=== PATIENT | female | born 1955 | race Two or more races ===

== ENCOUNTER 2017-07-24 16:50 | Inpatient (IN) | payer MEDICARE, MEDICAID ==
[~2017-07-24] VITALS: Ht 170.2 cm; Wt 68.0 kg
--- NOTE | 2017-07-24 16:52 | NUR ---
PT BIBRA TO ER BED 14. HERE FOR DEPRESSION. ADMITS TO USING METH AND ALCOHOL. GOWND AND PLACED ON MOITOR. DENIES SI/HI. AWAITING MD JACKSON.
--- NOTE | 2017-07-24 17:07 | NUR ---
DR FLOR AT BEDSIDE FOR EVAL.
--- NOTE | 2017-07-24 17:23 | NUR ---
IV LINE STARTED BLOOD DRAWN AND SENT TO LAB.
[2017-07-24] MEDS ORDERED: ONDANSETRON HCL/PF 4 MG/2 ML VIAL IVP ONE (17:30)
[2017-07-24 17:31] LABS: BASOPHILS % (AUTO) 0.4 % (0.0-2.0); EOSINOPHILS # (AUTO) 0.3 /CMM (0.0-0.7); EOSINOPHILS % (AUTO) 6.9 % (0.0-6.0); HEMATOCRIT 33 % (33-45); HEMOGLOBIN 10.6 g/dL (11.5-14.8); LYMPHOCYTES # (AUTO) 1.6 /CMM (0.8-4.8); LYMPHOCYTES % (AUTO) 36.1 % (20.0-44.0); MEAN CORPUSCULAR HEMOGLOBIN 30 PG (26.0-33.0); MEAN CORPUSCULAR HGB CONC 33 g/dl (31.0-36.0); MEAN CORPUSCULAR VOLUME 91 fL (82-100); MONOCYTES # (AUTO) 0.3 /CMM (0.1-1.30); NEUTROPHILS # (AUTO) 2.2 /CMM (1.8-8.9); NEUTROPHILS % (AUTO) 49.6 % (43.0-81.0); PLATELET COUNT (AUTO) 246 /CMM (150-450); RDW COEFFICIENT OF VARIATION 15.5 (11.5-15.0); RED BLOOD CELL COUNT(AUTO) 3.57 MIL/uL (4.0-5.2); WHITE BLOOD COUNT (AUTO) 4.4 K/uL (4.3-11.0)
[2017-07-24 17:40] LABS: CALCIUM, SERUM 9.3 mg/dL (8.5-10.1); CARBON DIOXIDE 30 mmol/L (21-32); CHLORIDE 104 mmol/L (98-107); CREATININE 0.7 mg/dL (0.6-1.3); GLUCOSE 108 mg/dL (74-106); POTASSIUM 3.7 mmol/L (3.5-5.1); SODIUM SERUM 140 mmol/L (136-145); UREA NITROGEN, BLOOD 7 mg/dL (7-18)
[2017-07-24 17:44] LABS: ALANINE AMINOTRANSFERASE 20 U/L (12-78); ALBUMIN 3.7 g/dL (3.4-5.0); ALCOHOL, BLOOD < 3 mg/dL (0-0); ALKALINE PHOSPHATASE 73 U/L (46-116); ASPARTATE AMINOTRANSFERASE 19 U/L (15-37); BILIRUBIN,TOTAL 0.2 mg/dL (0.2-1.0); TOTAL PROTEIN, SERUM 6.8 g/dL (6.4-8.2)
[2017-07-24 17:49] LABS: APPEARANCE,URINE Clear (CLEAR); BILIRUBIN,URINE Negative (NEGATIVE); BLOOD, URINE Negative Ery/uL (NEGATIVE); COLOR,URINE Yellow (YELLOW); KETONES,URINE Negative (NEGATIVE); LEUKOCYTE ESTERASE ,URINE Trace (NEGATIVE); NITRITE, URINE Negative (NEGATIVE); PH,URINE 6.5 (5.0-8.0); PROTEIN,URINE Negative (NEGATIVE); UGLUCOSE Negative (NEGATIVE); UROBILINOGEN,URINE 0.2 EU/dL (0.2)
[2017-07-24 17:50] LABS: TROPONIN I < 0.017 ng/mL (0.00-0.056)
--- NOTE | 2017-07-24 17:50 | NUR ---
RADIOLOGY AT BEDSIDE FOR CHEST XRAY.
[2017-07-24 17:55] LABS: SALICYLATE 0.9 mg/dL (2.8-20.0)
[2017-07-24 18:00] LABS: INR 0.9 (0.87-1.13); PROTHROMBIN TIME 9.4 SECS (9.5-12.7)
[2017-07-24] MEDS ORDERED: FAMOTIDINE/PF INJ 20 MG/2 ML VIAL IV ONE ×2 (18:07→18:30)
[2017-07-24] MEDS ORDERED: ONDANSETRON HCL/PF 4 MG/2 ML VIAL ONE (18:07)
[2017-07-24 18:18] LABS: BACTERIA,URINE Few /HPF (None Seen); RBC,URINE 0-2 /HPF (0-2); SQUAMOUS EPITHELIAL CELL,UR Many /HPF (None Seen)
[2017-07-24 18:19] LABS: MUCUS,URINE Few /LPF (None Seen); URINE AMORPHOUS URATE Few /HPF (None Seen)
--- NOTE | 2017-07-24 18:34 | NUR ---
CALLED JEFF LINE ASSEMBLER.
[2017-07-24] MEDS ORDERED: LORAZEPAM 1 MG TABLET PO ONE (19:30)
[2017-07-24 19:50] LABS: ACETAMINOPHEN < 20 ug/ml (10-30)
[2017-07-24] MEDS ORDERED: LORAZEPAM 1 MG TABLET ONE (19:54)
--- NOTE | 2017-07-24 20:08 | NUR ---
IV removed. Catheter intact and site benign. Pressure and 4x4 applied to site. No bleeding noted.
--- NOTE | 2017-07-24 20:15 | NUR ---
REPORT GIVEN TO CINTHIA. PT AWAITING MD JACKSON.
[2017-07-24 21:00] VITALS: BP 144/90
[2017-07-24] MEDS ORDERED: LORAZEPAM 0.5 MG TABLET PO PRN (21:00)
--- NOTE | 2017-07-24 21:00 | NUR ---
GPS STUDIO RECEPTIONIST NOTES: ADMITTED A 61YO FEMALE FROM A [facility] SHE CLAIMS ON VOLUNTARY HOLD. PER REPORT PATIENT IS DEPRESSED AND WANTS TO BE ADMITTED HERE. VOLUNTARY HOLD SIGNED AND FILED IN THE CHART. SHE WILL BE UNBER THE CARE OF DR. MCINTYRE AND DR. GONZALEZ. PER PATIENT SHE CLAIMS TO HAVE THE FOLLOWING MEDICAL ISSUES- CHF, GERD, HYPERTENSION, DEPRESSION AND ANXIETY. PATIENT WAS BROUGHT IN THE UNIT AND USHERED TO ROOM, UPON FACE TO FACE ASSESSMENT, PATIENT PRESENTS ALERT AND ORIENTED X2-3, HYPERVERBAL, REPEATS TOPICS FROM TIME TO TIME, ARGUMENTATIVE, ASKING FOR HER MEDICATIONS RIGHT AWAY. PHYSICALLY SHE PRESENTS HERSELF TO THE UNIT WITH BLUE COLORED HAIR, AND WITH A COUPLE OF FASHION NECKLACES AROUND HER NECK WELL FASHION RINGS WITH STONES ON HER FINGERS. BELONGINGS AND CONTRABAND CHECKED. VALUABLES DEPOSITED TO SAFE. REALITY ORIENTATION DONE. PATIENT MADE AWARE OF UNIT RULES AND POLICIES. INITIALLY PATIENT REFUSED TO BE IN THIS LOCKED UNIT, SHE CLAIMS THAT SHE CAME HERE BECAUSE SHE IS WITHDRAWING FROM ALCOHOL AND METH. PATIENT THEN EXPLAINED BY CAR DROPPER THAT TWO DOCTORS WILL COME AND CHECK HER INT HE MORNING. SKIN AND BODY ASSESSMENT DONE WITH RAIZA SAUNDERS. PICTURES TAKEN AND PLACED IN THE CHART. PATIENT HAS NO ACTIVE OPEN WOUND THIS TIME.PATIENT ORIENTED TO UNIT, STAFF, CARE PLAN, DOCTORS AND NURSES. SMOKING CESSATION EDUCATION INITIATED. PATIENT REFUSED. PATIENT IS VERY FOCUSED ON HIS MEDICATIONS. EXPLAINED THEN TO PATIENT THAT TWO DOCTORS(PSYCHE AND MEDICAL) WILL EVALUATE HER IN THE MORNING. Q15 MIN CHECKS INITIATED. MEDICATION [id number] DONE. WILL MONITOR PATIENT FOR MOOD,,SAFETY AND BEHAVIOT. Addendum: 07/25/17 at 0548 by JE BRAXTON AT 0025- DR. GONZALEZ PAGED FOR MED RECON- HE CALLED BACK AT 0027. HE WAS THEN INFORMED OF THE PATIENT'S ADMISSION TO THE UNIT, AND REMINDED TO DO MED RECON. WILL FOLLOW UP FOR PATIENT.
[2017-07-24] MEDS ORDERED: TEMAZEPAM 7.5 MG CAPSULE ONE (22:55)
[2017-07-24] MEDS: TEMAZEPAM 7.5 MG CAPSULE PO PRN (23:00)
--- NOTE | 2017-07-24 23:00 | NUR ---
GPS RN: PATIENT REQUESTED FOR SLEEPING MEDICATION- RESTORIL 7.5 MG PULLED OUT BY HERB GROWERVONDA OWEN FROM [employer] AND GIVEN TO PATIENT PRN ORDER. WILL MONITOR PATIENT'S SLEEPING PATTERN. 230- PATIENT REQUESTED FOR PAIN MEDICATION- OFFERED TYLENOL 650MG. HERB GROWERVONDA OWEN PULLED OUT MEDICATION AND GIVEN TO PATIENT PRN ORDER. WILL CONTINUE TO MONITOR PATIENT'S PAIN STATUS. 234- PATIENT REQUESTED FOR MEDICATION FOR THE STOMACH SHE COMPLAINS THAT SHE HAS UPSET STOMACH OF THE MOMENT. MAALOX MEDICATION PULLED OUT BY HERB GROWERBRAYDEN FERRARI FROM [employer] AND GIVEN TO PATIENT PRN ORDER.
[2017-07-24] MEDS: ACETAMINOPHEN 325 MG TABLET PO PRN (23:08)
[2017-07-24] MEDS: MAG HYDROX/AL HYDROX/SIMETH 30 ML UDC PO PRN (23:41)
[2017-07-25] MEDS ORDERED: METO25TA6 PO (00:18)
[2017-07-25] MEDS ORDERED: HYDR-552 PO (00:18)
[2017-07-25] MEDS ORDERED: BACL10TA PO (00:18)
[2017-07-25] MEDS ORDERED: ALBU0.633 IH (00:18)
[2017-07-25] MEDS ORDERED: LITH300T3 PO (00:18)
[2017-07-25] MEDS ORDERED: FURO-144 PO (00:18)
[2017-07-25] MEDS ORDERED: QUET100T PO (00:18)
[2017-07-25] MEDS ORDERED: CARB25TA3 PO (00:18)
[2017-07-25] MEDS ORDERED: HYDR2TAB35 PO (00:18)
[2017-07-25] MEDS ORDERED: CLON2TAB4 PO (00:18)
[2017-07-25] MEDS ORDERED: SERT100T PO (00:18)
[2017-07-25] MEDS ORDERED: BUDE10.22 INH (00:18)
[2017-07-25] MEDS ORDERED: RISP0.253 PO (00:18)
[2017-07-25] MEDS ORDERED: PANT40TA2 PO (00:21)
--- NOTE | 2017-07-25 06:19 | NUR ---
GPS RN: PATIENT REQUESTED FOR ATIVAN MEDICATION- PER PATIENT SHE IS GETTING ANXIOUS ALREADY AND THAT SHE WANTED TO LEAVE THE UNIT, ATIVAN 0.5 MG PULLED OUT FROM [facility]MN[employer] PRN ORDER. GIVEN TO PATIENT A PRN ORDER. WILL CONTINUE TO MONITOR. WILL INFORM DAY SHIFT NURSE.
[2017-07-25 08:26] VITALS: BP 133/85
[2017-07-25] MEDS: ACETAMINOPHEN 325 MG TABLET PO PRN (08:32)
--- NOTE | 2017-07-25 08:34 | NUR ---
GPS/RN-NOTES PATIENT REQUESTING FOR TYLENOL FOR HER LEGS 4/10 PAIN. TYLENOL 650MG P.O GIVEN PRN OR JON. WILL CONT. MONITORING FOR SAFETY.
[2017-07-25] MEDS ORDERED: ALBUTEROL SULFATE 0.63 MG IH SCH (12:00)
[2017-07-25] MEDS: HYDROCODONE/APAP 5/325MG 1 EACH TABLET PO SCH ×2 (12:00→18:08)
[2017-07-25] MEDS: HYDROMORPHONE HCL 2 MG TABLET PO SCH ×3 (12:58→20:24)
[2017-07-25] MEDS: METOPROLOL TARTRATE 25 MG TABLET PO SCH ×2 (13:00→16:36)
[2017-07-25] MEDS ORDERED: CARBIDOPA 25 MG TABLET PO SCH ×2 (13:00)
[2017-07-25] MEDS: BACLOFEN (10 MG) 10 MG TABLET PO SCH ×2 (13:00→16:35)
--- NOTE | 2017-07-25 13:03 | NUR ---
GPS/RN-NOTES PATIENT REFUSED NORCO 5MG/325MG SCHEDULED ON 1200 NOON AND DILAUDID 2MG P.O. OFFERED X3 BUT PATIENT PREFERS TO LEAVE THE HOSPITAL.
[2017-07-25] MEDS: LORAZEPAM 1 MG TABLET PO PRN ×2 (14:03→20:57)
--- NOTE | 2017-07-25 14:06 | NUR ---
GPS/RN-NOTES PATIENT VERY ANXIOUS, INTRUSIVE INSISTING OF GOING HOME. REDIRECTED AND OFFERED ATIVAN AND AGREES. ATIVAN 1MG P.O GIVEN PRN ORDER. WILL CONT. MONITORING FOR SAFETY AND BEHAVIOR.
--- NOTE | 2017-07-25 14:44 | NUR ---
GPS/RN NOTES PATIENT IN HER ROOM SITTING IN HER BED,CALM AND COOPERATIVE AT THIS TIME NO ACUTE DISTRESS NOTED.ENDORSED TO CHARGE NURSE FOR CONTINUITY OF CARE
--- NOTE | 2017-07-25 15:30 | NUR ---
GPS/RN-NOTES PATIENT CLAIMED SHE DRINK 1/2 TO [address] CRESPO MADE AWARE AND STATED " IF SHE'S ON ATIVAN THAT IS ENOUGH,I DON'T SEE ANY ALCOHOL WITHDRAWAL ON THE PATIENT". CHARGE NURSE AWARE.
[2017-07-25] MEDS: LITHIUM CARBONATE 150 MG CAPSULE PO SCH ×2 (15:52→20:25)
[2017-07-25] MEDS: SERTRALINE HCL 50 MG TABLET PO SCH (15:52)
[2017-07-25 16:25] VITALS: BP 140/95
[2017-07-25] MEDS: PANTOPRAZOLE 40 MG TABLET.DR PO SCH (16:35)
[2017-07-25] MEDS: CARBIDOPA/LEVODOPA 25/100 MG 1 UDTAB PO SCH (16:35)
[2017-07-25] MEDS ORDERED: HOME MED MISCELLANEOUS INH SCH (17:00)
--- NOTE | 2017-07-25 18:01 | NUR ---
RN NOTE: NOTIFIED PATIENT HAS HX OF SZ AND HX OF ALCOHOLIC AND DRINKING 1/2 PINT TO 1 PINTOF ALCHOHOL EVERY DAY AND PATIENT REQUESTING LIBRIUM AND STATED "PATIENT HAS ATIVAN ,I WILL NOT ORDER LIBRIUM".
[2017-07-25] MEDS: MAG HYDROX/AL HYDROX/SIMETH 30 ML UDC PO PRN (18:58)
--- NOTE | 2017-07-25 18:59 | NUR ---
GPS/RN-NOTES PATIENT C/O INDIGESTION AND REQUESTING FOR MAALOX. MAALOX 30 ML GIVEN PRN ORDER. WILL ENDORSED TO INCOMING NURSE FOR CONTINUITY OF CARE.
[2017-07-25] MEDS: ONDANSETRON 4 MG TAB.RAPDIS PO PRN (19:29)
--- NOTE | 2017-07-25 19:29 | NUR ---
GPS RN NOTES: PATIENT C/O NAUSEOUS, REQUESTED FOR ZOFRAN. ZOFRAN 4MG PO GIVEN PRN ORDER. WILL CONTINUE TO MONITOR.
[2017-07-25 19:42] VITALS: BP 133/81
[2017-07-25] MEDS: ALBUTEROL HALF STRENGTH 1.25 MG/3 ML VIAL.NEB NEB SCH (20:01)
--- NOTE | 2017-07-25 20:57 | NUR ---
GPS RN NOTES: PATENT ALERT AND ORIENTED X3. PATIENT IS VERY ANXIOUS. PT REQUESTED FOR ATIVAN. VITAL SIGNS ARE STABLE. ATIVAN 1MG PO GIVEN PRN ORDER. WILL CONTINUE TO MONITOR [id number] FOR SAFETY AND BEHAVIOR.
[2017-07-25] MEDS: TEMAZEPAM 7.5 MG CAPSULE PO PRN (21:51)
[2017-07-25] MEDS: QUETIAPINE FUMARATE 100 MG TABLET PO SCH (22:12)
--- NOTE | 2017-07-26 | NUR ---
GPS RN NOTES: PATIENT HAS SCHEDULED MEDICATION 12AM, NORCO 5/325MG PO, NOT GIVEN/NOT ADMIN DUE TO PATIENT ASLEEP. NO MANIFESTATION OF PAIN OR DISCOMFORT NOTED AT THIS TIME. WILL CONTINUE TO MONITOR PATIENT PAIN STATUS. CHARGE NURSE MADE AWARE.
[2017-07-26] MEDS: HYDROMORPHONE HCL 2 MG TABLET PO SCH ×7 (01:00→22:17)
[2017-07-26] MEDS: ONDANSETRON 4 MG TAB.RAPDIS PO PRN ×2 (01:29→20:53)
--- NOTE | 2017-07-26 01:29 | NUR ---
GPS RN NOTES: PATIENT C/O OF NAUSEA/VOMITING. NOTED WITH EMESIS X1 WITH FOOD CONTENT. VITALS SIGNS ARE STABLE. WILL CONTINUE TO MONITOR.
[2017-07-26] MEDS: ALBUTEROL HALF STRENGTH 1.25 MG/3 ML VIAL.NEB NEB SCH ×4 (01:43→20:35)
--- NOTE | 2017-07-26 05:00 | NUR ---
GPS RN NOTES: PATIENT ASLEEP AT THIS TIME. SCHEDULED DILAUDID 2MG, NOT GIVEN/NON-ADMIN. NO MANIFESTATION OF PAIN/DISCOMFORT NOTED. CHARGE NURSE MADE AWARE. WILL CONTINUE TO MONITOR AND ASSESS PATIENT PAIN STATUS.
[2017-07-26] MEDS: HYDROCODONE/APAP 5/325MG 1 EACH TABLET PO SCH ×4 (06:00→18:00)
--- NOTE | 2017-07-26 06:29 | NUR ---
GPS RN NOTES: PATIENT HAS SCHEDULED MEDICATION 0600, NORCO 5/325MG PO, NOT GIVEN/NOT ADMIN DUE TO PATIENT ASLEEP. NO MANIFESTATION OF PAIN OR DISCOMFORT NOTED AT THIS TIME. WILL CONTINUE TO MONITOR AND ASSESS PATIENT PAIN STATUS. CHARGE NURSE MADE AWARE.
[2017-07-26] MEDS: PANTOPRAZOLE 40 MG TABLET.DR PO SCH ×2 (07:30→16:58)
[2017-07-26] MEDS ORDERED: FENTANYL PF 100MCG/2ML AMPUL ONE (07:32)
[2017-07-26 08:40] VITALS: BP 130/69
[2017-07-26] MEDS: METOPROLOL TARTRATE 25 MG TABLET PO SCH ×3 (09:00→17:02)
[2017-07-26] MEDS: SERTRALINE HCL 50 MG TABLET PO SCH (09:00)
[2017-07-26] MEDS: LITHIUM CARBONATE 150 MG CAPSULE PO SCH ×2 (09:00→22:17)
[2017-07-26] MEDS: CARBIDOPA/LEVODOPA 25/100 MG 1 UDTAB PO SCH ×3 (09:00→16:59)
[2017-07-26] MEDS: BACLOFEN (10 MG) 10 MG TABLET PO SCH ×3 (09:00→16:58)
[2017-07-26] MEDS: FLUTICASONE/VILANTEROL 1 EACH BLST.W.DEV IH SCH (09:00)
[2017-07-26] MEDS: FUROSEMIDE 40 MG TABLET PO SCH (09:00)
[2017-07-26] MEDS: LORAZEPAM 1 MG TABLET PO PRN ×2 (11:37→17:17)
--- NOTE | 2017-07-26 11:50 | NUR ---
RN Note Ativan 1mg given for anxiety. Will continue to monitor.
[2017-07-26 15:55] VITALS: BP 105/55
--- NOTE | 2017-07-26 18:01 | NUR ---
RN Note: Ativan 1mg given for anxiety. Will monitor patient for safety.
[2017-07-26 20:45] VITALS: BP 108/60
--- NOTE | 2017-07-26 20:53 | NUR ---
GPS RN NOTES: PATIENT C/O NAUSEOUS, REQUESTED FOR ZOFRAN. ZOFRAN 4MG PO GIVEN PRN ORDER. WILL CONTINUE TO MONITOR.
[2017-07-26] MEDS: TEMAZEPAM 7.5 MG CAPSULE PO PRN (21:34)
[2017-07-26] MEDS: QUETIAPINE FUMARATE 100 MG TABLET PO SCH (22:18)
--- NOTE | 2017-07-27 00:01 | NUR ---
GPS RN NOTES: PATIENT HAS SCHEDULED MEDICATION 12AM, NORCO 5/325MG PO, NOT GIVEN/NOT ADMIN DUE TO PATIENT ASLEEP. NO MANIFESTATION OF PAIN OR DISCOMFORT NOTED AT THIS TIME. WILL CONTINUE TO MONITOR AND ASSESS PATIENT PAIN STATUS. CHARGE NURSE MADE AWARE.
[2017-07-27] MEDS: HYDROMORPHONE HCL 2 MG TABLET PO SCH ×6 (01:00→21:28)
--- NOTE | 2017-07-27 01:00 | NUR ---
GPS RN NOTES: PATIENT ASLEEP AT THIS TIME. DILAUDID 2MG SCHEDULED ON 0100, NOT GIVEN/NON-ADMIN. NO MANIFESTATION OF PAIN/DISCOMFORT NOTED. CHARGE NURSE MADE AWARE. WILL CONTINUE TO MONITOR AND ASSESS PATIENT PAIN STATUS.
[2017-07-27] MEDS: ALBUTEROL HALF STRENGTH 1.25 MG/3 ML VIAL.NEB NEB SCH ×4 (01:18→19:30)
--- NOTE | 2017-07-27 05:00 | NUR ---
GPS RN NOTES: PATIENT ASLEEP AT THIS TIME. SCHEDULED DILAUDID 2MG PO, NOT GIVEN/NON-ADMIN. NO MANIFESTATION OF PAIN/DISCOMFORT NOTED. CHARGE NURSE MADE AWARE. WILL CONTINUE TO MONITOR AND ASSESS PATIENT PAIN STATUS.
[2017-07-27] MEDS: HYDROCODONE/APAP 5/325MG 1 EACH TABLET PO SCH ×2 (06:14)
[2017-07-27] MEDS: LORAZEPAM 1 MG TABLET PO PRN ×3 (06:37→21:26)
--- NOTE | 2017-07-27 06:38 | NUR ---
GPS RN NOTES: PATENT ALERT AND ORIENTED X3. PATIENT IS VERY ANXIOUS. PT REQUESTED FOR ATIVAN. VITAL SIGNS ARE STABLE. ATIVAN 1MG PO GIVEN PRN ORDER. WILL CONTINUE TO MONITOR [id number] FOR SAFETY AND BEHAVIOR.
[2017-07-27 08:00] VITALS: BP 100/59
[2017-07-27] MEDS: LITHIUM CARBONATE 150 MG CAPSULE PO SCH ×2 (08:57→21:28)
[2017-07-27] MEDS: PANTOPRAZOLE 40 MG TABLET.DR PO SCH ×2 (08:57→17:18)
[2017-07-27] MEDS: BACLOFEN (10 MG) 10 MG TABLET PO SCH ×3 (08:57→17:19)
[2017-07-27] MEDS: METOPROLOL TARTRATE 25 MG TABLET PO SCH ×3 (08:58→17:19)
[2017-07-27] MEDS: CARBIDOPA/LEVODOPA 25/100 MG 1 UDTAB PO SCH ×3 (08:58→17:18)
[2017-07-27] MEDS: SERTRALINE HCL 50 MG TABLET PO SCH (08:58)
[2017-07-27] MEDS: FUROSEMIDE 40 MG TABLET PO SCH (08:58)
--- NOTE | 2017-07-27 10:00 | NUR ---
Initial Discharge Note Patient currently resides at an independent living facility, located at [address] [place] [id number] / [phone]. Patient states she is unsure if she would like to go back. Patient states she would like to either go to SNF or inpatient drug rehab. Patient finally decided on detox program. SW to follow up and arrange safe and proper discharge. SW to provide substance abuse referrals and smoking cessation referrals to patient upon discharge.
--- NOTE | 2017-07-27 10:38 | NUR ---
Discharge Planning: Patient stated that she changed her mind about the inpatient rehab program wants to return to her independent living [address] [address] / [phone]. SW asked patient if she was sure that was the right decision for her and patient stated that it was. SW to contact Cassy [phone] from [facility] and confirm patient's return.
[2017-07-27] MEDS: FLUTICASONE/VILANTEROL 1 EACH BLST.W.DEV IH SCH (10:51)
[2017-07-27 16:08] VITALS: BP 110/60
--- NOTE | 2017-07-27 16:16 | NUR ---
GPS/RN PATIENT REPORTS CHEST PAIN, VITAL SIGNS STABLE, BP 114/66 HR 68, 02 97%, NO MAJOR DISTRESS NOTED, DR CRESPO AWARE, ORDERED STAT EKG, ORDERS INPUTTED IN SYSTEM.AWAITING EKG.
--- NOTE | 2017-07-27 17:20 | NUR ---
GPS/RN DR CRESPO AWARE OF EKG RESULTS, NO NEW ORDERS AT THIS TIME.
[2017-07-27 20:00] VITALS: BP 129/71
--- NOTE | 2017-07-27 20:01 | NUR ---
RT PT STATES SHE HAS NO REASON TO BE HERE AND DOES NOT WANT HER TX. NO SOB OR RESP DISTRESS NOTED AT THIS TIME.
--- NOTE | 2017-07-27 21:26 | NUR ---
GPS/RN NOTE: PATIENT IS ANXIOUS, LORAZEPAM 5 MG TAB PO GIVEN.
[2017-07-27] MEDS: TEMAZEPAM 7.5 MG CAPSULE PO PRN (21:55)
[2017-07-27] MEDS: QUETIAPINE FUMARATE 100 MG TABLET PO SCH (21:55)
--- NOTE | 2017-07-27 21:57 | NUR ---
GPS/RN NOTE: PATIENT C/O INSOMNIA, TEMAZEAPM 7.5 MG CAP 1 PO GIVEN.
[2017-07-28] MEDS: HYDROMORPHONE HCL 2 MG TABLET PO SCH ×6 (01:00→21:00)
--- NOTE | 2017-07-28 01:21 | NUR ---
GPS/RN NOTE: DILAUDID TAB PO DUE AT 0100 NOT ADMINISTERED, PATIENT ASLEEP AT THIS TIME.
[2017-07-28] MEDS: ALBUTEROL HALF STRENGTH 1.25 MG/3 ML VIAL.NEB NEB SCH ×4 (01:30→20:34)
[2017-07-28] MEDS: LORAZEPAM 1 MG TABLET PO PRN ×3 (04:55→20:05)
[2017-07-28 08:00] VITALS: BP 99/59
[2017-07-28] MEDS: PANTOPRAZOLE 40 MG TABLET.DR PO SCH ×2 (08:48→16:19)
[2017-07-28] MEDS: FUROSEMIDE 40 MG TABLET PO SCH (09:00)
[2017-07-28] MEDS: METOPROLOL TARTRATE 25 MG TABLET PO SCH ×3 (09:00→16:20)
[2017-07-28] MEDS: CARBIDOPA/LEVODOPA 25/100 MG 1 UDTAB PO SCH ×3 (10:12→16:21)
[2017-07-28] MEDS: LITHIUM CARBONATE 150 MG CAPSULE PO SCH ×2 (10:12→21:11)
[2017-07-28] MEDS: BACLOFEN (10 MG) 10 MG TABLET PO SCH ×3 (10:15→16:21)
[2017-07-28] MEDS: SERTRALINE HCL 50 MG TABLET PO SCH (10:15)
[2017-07-28] MEDS: FLUTICASONE/VILANTEROL 1 EACH BLST.W.DEV IH SCH (10:19)
[2017-07-28] MEDS ORDERED: HYDROCODONE/APAP 5/325MG 1 EACH TABLET PO PRN (13:00)
--- NOTE | 2017-07-28 13:28 | NUR ---
RN NOTE: Ativan 1mg given for anxiety.
[2017-07-28 16:00] VITALS: BP 111/67
--- NOTE | 2017-07-28 16:41 | NUR ---
Discharge Planning: SW spoke with patient several times throughout the day. Patient insisted on going home. SW explained that patient is still on hold and that the psychiatrist has to put in a discharge order before anything can be done. Patient stated that the contact number for her independent living was on her phone. SW asked the SALES ANALYTICS MANAGER to bring up the phone to the unit from the safe on the first floor. Patient's phone was out of charge. SW attempted to locate a recharger. Several chargers were tried and not one fit the patient's phone. SW attempted to find the contact information for the independent living via and internet search and was unsuccessful. Please note that patient refused alternative placement, stating that she will go to a prison if she is unable to return home. Patient is insistent that today would be the last day for her to return home "or else [she] loses [her] place." SW is unable to verify that information.
--- NOTE | 2017-07-28 16:44 | NUR ---
Upon patient's request, NACRISA connected patient with NARCISA's software engineering supervisor, Janis Samaniego [phone]. NARCISA also provided patient with the Patient's Rights phone number, .
[2017-07-28 20:00] VITALS: BP 103/59
[2017-07-28] MEDS: TEMAZEPAM 7.5 MG CAPSULE PO PRN (21:12)
[2017-07-28] MEDS: QUETIAPINE FUMARATE 100 MG TABLET PO SCH (22:09)
[2017-07-29] MEDS: ALBUTEROL HALF STRENGTH 1.25 MG/3 ML VIAL.NEB NEB SCH ×4 (00:51→19:30)
[2017-07-29] MEDS: HYDROMORPHONE HCL 2 MG TABLET PO SCH ×6 (01:00→20:09)
[2017-07-29] MEDS: LORAZEPAM 1 MG TABLET PO PRN ×3 (06:35→19:49)
[2017-07-29 08:00] VITALS: BP 134/58
[2017-07-29] MEDS: PANTOPRAZOLE 40 MG TABLET.DR PO SCH ×2 (08:01→16:00)
[2017-07-29] MEDS: BACLOFEN (10 MG) 10 MG TABLET PO SCH ×3 (08:01→16:00)
[2017-07-29] MEDS: FUROSEMIDE 40 MG TABLET PO SCH (08:01)
[2017-07-29] MEDS: LITHIUM CARBONATE 150 MG CAPSULE PO SCH ×2 (08:01→20:08)
[2017-07-29] MEDS: SERTRALINE HCL 50 MG TABLET PO SCH (08:02)
[2017-07-29] MEDS: CARBIDOPA/LEVODOPA 25/100 MG 1 UDTAB PO SCH ×3 (08:02→16:00)
[2017-07-29] MEDS: METOPROLOL TARTRATE 25 MG TABLET PO SCH ×3 (08:43→16:01)
[2017-07-29] MEDS: FLUTICASONE/VILANTEROL 1 EACH BLST.W.DEV IH SCH (08:44)
--- NOTE | 2017-07-29 14:22 | NUR ---
AM RN NOTE Patient notified RN that she was smoking 1 pack of cigarettes prior admission and pt requesting for nicotine patch. New order obtained from Dr. Thomas for nicotine patch noted and carried out.
[2017-07-29 15:41] VITALS: BP 111/56
[2017-07-29] MEDS: NICOTINE PATCH (14MG) 14 MG PATCH.TD24 TD SCH (15:58)
[2017-07-29 20:00] VITALS: BP 110/64
[2017-07-29] MEDS: TEMAZEPAM 7.5 MG CAPSULE PO PRN (23:38)
[2017-07-29] MEDS: QUETIAPINE FUMARATE 100 MG TABLET PO SCH (23:38)
[2017-07-29] MEDS: MAG HYDROX/AL HYDROX/SIMETH 30 ML UDC PO PRN (23:43)
[2017-07-30] MEDS: HYDROMORPHONE HCL 2 MG TABLET PO SCH ×6 (01:00→21:14)
[2017-07-30] MEDS: ALBUTEROL HALF STRENGTH 1.25 MG/3 ML VIAL.NEB NEB SCH ×4 (01:25→20:06)
[2017-07-30] MEDS: LORAZEPAM 1 MG TABLET PO PRN ×2 (05:56→12:15)
[2017-07-30 08:24] VITALS: BP 119/68
[2017-07-30] MEDS: PANTOPRAZOLE 40 MG TABLET.DR PO SCH ×2 (08:47→16:36)
[2017-07-30] MEDS: BACLOFEN (10 MG) 10 MG TABLET PO SCH ×3 (09:44→17:00)
[2017-07-30] MEDS: NICOTINE PATCH (14MG) 14 MG PATCH.TD24 TD SCH (09:44)
[2017-07-30] MEDS: METOPROLOL TARTRATE 25 MG TABLET PO SCH ×3 (09:44→17:00)
[2017-07-30] MEDS: CARBIDOPA/LEVODOPA 25/100 MG 1 UDTAB PO SCH ×3 (09:44→17:00)
[2017-07-30] MEDS: SERTRALINE HCL 50 MG TABLET PO SCH (09:44)
[2017-07-30] MEDS: FUROSEMIDE 40 MG TABLET PO SCH (09:44)
[2017-07-30] MEDS: LITHIUM CARBONATE 150 MG CAPSULE PO SCH ×2 (09:44→21:14)
[2017-07-30] MEDS: FLUTICASONE/VILANTEROL 1 EACH BLST.W.DEV IH SCH (09:49)
[2017-07-30] MEDS: MAGNESIUM HYDROXIDE 30 ML UDC PO PRN (10:09)
--- NOTE | 2017-07-30 10:09 | NUR ---
GPS/RN-NOTES PATIENT C/O CONSTIPATION REQUESTING FOR MAALOX. MAALOX 30ML GIVEN PRN ORDER. WILL CONT. MONITORING.
--- NOTE | 2017-07-30 12:15 | NUR ---
GPS/RN-NOTES PATIENT REQUESTING ATIVAN. STATED" I NEED MY ATIVAN FOR MY ANXIETY". ATIVAN 1MG P.O GIVEN PRN ORDER. VITAL SIGN STABLE .WILL CONT. MONITORING FOR SAFETY AND BEHAVIOR.
[2017-07-30 12:17] VITALS: BP 128/74
[2017-07-30 14:04] VITALS: BP_SYST 122
[2017-07-30 16:00] VITALS: BP 110/67
[2017-07-30 20:16] VITALS: BP 118/74
[2017-07-30] MEDS: QUETIAPINE FUMARATE 100 MG TABLET PO SCH (21:40)
[2017-07-31] MEDS: HYDROMORPHONE HCL 2 MG TABLET PO SCH ×6 (01:00→21:00)
--- NOTE | 2017-07-31 01:00 | NUR ---
RN GPS NOTED DILAUDID TAB PO DUE AT 0100 NOT ADMINISTERED, PATIENT REFUSED ,ASLEEP AT THIS TIME.
[2017-07-31] MEDS: ALBUTEROL HALF STRENGTH 1.25 MG/3 ML VIAL.NEB NEB SCH ×4 (01:30→20:02)
--- NOTE | 2017-07-31 06:28 | NUR ---
GPS RN NOTES PT. COMFORTABLY RESTING AT THIS TIME, NO ACUTE DISTRESS NOTED ,ENDORSE TO NEXT SHIFT FOR CONTINUTY OF CARE .
[2017-07-31 08:10] VITALS: BP 135/76
[2017-07-31] MEDS: CARBIDOPA/LEVODOPA 25/100 MG 1 UDTAB PO SCH ×3 (08:19→16:43)
[2017-07-31] MEDS: SERTRALINE HCL 50 MG TABLET PO SCH (08:19)
[2017-07-31] MEDS: PANTOPRAZOLE 40 MG TABLET.DR PO SCH ×2 (08:19→16:43)
[2017-07-31] MEDS: METOPROLOL TARTRATE 25 MG TABLET PO SCH ×3 (08:20→16:43)
[2017-07-31] MEDS: BACLOFEN (10 MG) 10 MG TABLET PO SCH ×3 (08:20→16:43)
[2017-07-31] MEDS: FUROSEMIDE 40 MG TABLET PO SCH (08:22)
[2017-07-31] MEDS: LITHIUM CARBONATE 150 MG CAPSULE PO SCH ×2 (08:23→21:00)
[2017-07-31] MEDS: NICOTINE PATCH (14MG) 14 MG PATCH.TD24 TD SCH (08:23)
[2017-07-31] MEDS: FLUTICASONE/VILANTEROL 1 EACH BLST.W.DEV IH SCH (09:32)
[2017-07-31] MEDS: MAGNESIUM HYDROXIDE 30 ML UDC PO PRN (09:33)
--- NOTE | 2017-07-31 10:54 | NUR ---
Discharge Planning: SW spoke with patient this morning regarding the discharge plan. Patient appeared to be calm and understanding. Patient was alert and oriented x4. Patient showed no signs of confusion. Patient stated that she wishes to return to her independent living facility, although there is no contact information for Cassy, the melting supervisor. Patient stated that she has full ulises that Cassy will accept her back into one of her three facilities. Patient stated that Cassy has half of the rent money. Patient stated that she wants to take a cab back to the independent living. Patient also asked for some homeless jail resources in the event that she cannot go to the independent living. Patient stated she was not interested in any alternative placement. Patient stated that she knows Cassy and feels safe returning there.
[2017-07-31] MEDS: MAG HYDROX/AL HYDROX/SIMETH 30 ML UDC PO PRN (12:11)
[2017-07-31] MEDS: LORAZEPAM 1 MG TABLET PO PRN ×2 (14:53→20:31)
[2017-07-31] MEDS: ONDANSETRON 4 MG TAB.RAPDIS PO PRN (14:53)
[2017-07-31] MEDS ORDERED: ONDANSETRON HCL 4 MG/5 ML SOLUTION PO PRN (15:00)
[2017-07-31 16:15] VITALS: BP 133/90
[2017-07-31 20:31] VITALS: BP 122/75
[2017-07-31 20:59] VITALS: BP 88/51
[2017-07-31 21:40] VITALS: BP 113/69
[2017-07-31] MEDS: QUETIAPINE FUMARATE 100 MG TABLET PO SCH (21:40)
[2017-08-01] MEDS: HYDROMORPHONE HCL 2 MG TABLET PO SCH ×3 (01:00→09:02)
[2017-08-01] MEDS: ALBUTEROL HALF STRENGTH 1.25 MG/3 ML VIAL.NEB NEB SCH ×2 (01:30→07:35)
[2017-08-01] MEDS: LORAZEPAM 1 MG TABLET PO PRN ×2 (03:58→10:04)
[2017-08-01 08:00] VITALS: BP 103/67
[2017-08-01] MEDS: PANTOPRAZOLE 40 MG TABLET.DR PO SCH (08:59)
[2017-08-01 09:00] VITALS: BP 103/66
[2017-08-01] MEDS: SERTRALINE HCL 50 MG TABLET PO SCH (09:00)
[2017-08-01] MEDS: FUROSEMIDE 40 MG TABLET PO SCH (09:00)
[2017-08-01] MEDS: BACLOFEN (10 MG) 10 MG TABLET PO SCH (09:00)
[2017-08-01] MEDS: NICOTINE PATCH (14MG) 14 MG PATCH.TD24 TD SCH (09:00)
[2017-08-01] MEDS: LITHIUM CARBONATE 150 MG CAPSULE PO SCH (09:00)
[2017-08-01] MEDS: CARBIDOPA/LEVODOPA 25/100 MG 1 UDTAB PO SCH (09:00)
[2017-08-01] MEDS: METOPROLOL TARTRATE 25 MG TABLET PO SCH (09:00)
[2017-08-01] MEDS: FLUTICASONE/VILANTEROL 1 EACH BLST.W.DEV IH SCH (09:12)
--- NOTE | 2017-08-01 10:04 | NUR ---
GPS/RN-NOTES PATIENT REQUESTING ATIVAN .STATED" I NEED MY ATIVAN, I'M ANXIOUS". ATIVAN 1MG P.O GIVEN PRN ORDER. WILL CONT. MONITORING FOR SAFETY AND BEHAVIOR.
--- NOTE | 2017-08-01 12:14 | NUR ---
Discharge Note: Patient will be discharged to Independent living facility, located at [address] [address] via taxi arranged by social media manager through [employer] [phone]. Patient stated that she felt safe returning to this independent living facility and did not want alternative placement. Patient was alert and oriented x4. Patient denied suicidal and homicidal ideation. Patient denied visual and auditory hallucinations. Patient does not have any family or close ones to notify. Patient will be seen by her physician general assistant Brandi Joya [address] [facility] [place] [facility] [place] [address] / [phone] on August 24 at 8:30am. Patient was also referred to [facility], . Patient was referred to [facility] at [address] [place] [address] and was encouraged to present at 9am on August 02 for intake screening. Patient was also referred to [facility] at [address] and [facility] at [address], [place] [id number] . Patient was encouraged to present at an Alcoholic Anonymous meeting on August 05 at 8:30am at [address] [place] [address]. Patient was also provided referrals to a smoking cessation group and was encouraged to present at [facility] [place], [place] at 6pm on August 02. Additional resources provided included [employer] 800-LUNGUSA and [employer] [phone]. As requested, patient was provided a list of nursing homes in the [place] area: [facility] - [address] [facility] - [address] [facility] - [address] [facility] - [address] [facility] NARCISA also provided a list of Winter Shelters for patient in her area: In [facility] the pickup point is [facility] [place], southeast corner of [facility] and [address] [place] [address] at 3:30pm, 4:30pm and 5:30pm. And at [facility]: [address] at 4:30pm. Addendum: 08/01/17 at 1218 by JACKY BREWSTER Please note that patient was also provided the number for Alcohol Addiction Helpline at and the [facility] [address] [facility] .
--- NOTE | 2017-08-01 12:59 | NUR ---
GPS/RN-NOTES PATIENT DISCHARGE TO INDEPENDENT LIVING FACILITY TODAY. DR. MCINTYRE AND SNACK STEWARD JORDEN AWARE AND AGREES OF PATIENT DISCHARGE WITH ORDERS. PATIENT DID NOT VERBALIZE SI/HI,DENIES VISUAL/AUDITORY HALLUCINATIONS AT THE TIME OF DISCHARGE. ALL DISCHARGE MEDICATIONS WAS REVIEWED WITH THE PATIENT WITH UNDERSTANDING. RX WAS GIVEN TO THE PATIENT. PATIENT HAS NO FAMILY TO NOTIFY ON DISCHARGE. PATIENT LEFT THE UNIT IN STABLE CONDITION ,AMBULATORY WITH HER OWN WALKER AND WITH ALL HER BELONGINGS INCLUDING CELLPHONE AND RON MONEY. SHE WAS ASSISTED IN THE LOBBY FOR SAFETY. BANDER AND CELLOPHANER MACHINE HELPER BY [employer].
== END 2017-08-01 12:59 | DRG 885 ==
LOC: ER 16:56 → GPS 20:17
PROVIDERS: ADMIT Psychiatry & Neurology Psychiatry; ATTEND Psychiatry & Neurology Psychiatry
DX: F31.9 Bipolar disorder, unspecified (principal); I11.0 Hypertensive heart disease with heart failure; I50.9 Heart failure, unspecified; F10.20 Alcohol dependence, uncomplicated; K21.9 Gastro-esophageal reflux disease without esophagitis; F41.9 Anxiety disorder, unspecified; Z88.9 Allergy status to unspecified drugs, medicaments and biological substances; Y90.0 Blood alcohol level of less than 20 mg/100 ml; F15.10 Other stimulant abuse, uncomplicated; F29 Unspecified psychosis not due to a substance or known physiological condition; G89.29 Other chronic pain
CPT/HCPCS: 36415; 71010-TC; 80048-TC; 80076-TC; 80305; 81000-TC; 83880; 84484-TC; 85025-TC; 85730-TC; 87081-TC; 87086-TC; A4606; G0480; J2405; J3010; J3490; Q0162; Z7610